=== PATIENT | female | born 1990 | race Caucasian/White ===

== ENCOUNTER 2017-04-12 12:00 | Emergency (ER) | payer OTHER ==
[~2017-04-12] VITALS: Ht 167.6 cm; Wt 87.5 kg
[2017-04-12 13:02] LABS: HEMATOCRIT 41.6 % (36.0-46.0); MCH 31.3 PG (29.0-34.0); MCHC 34.4 G/DL (30.0-36.0); MEAN PLAT.VOLUME 10.4 uM^3 (9.5-12.4); PLATELET COUNT 219 K/uL (156-360); RBC DIS.WIDTH-CV 13.1 % (11.8-14.6); RED BLOOD COUNT 4.57 M/uL (3.80-5.20); WHITE BLOOD COUNT 8.3 K/uL (4.1-10.2)
[2017-04-12 13:14] LABS: CHLORIDE 113 mEq/L (99-109); POTASSIUM 3.4 mEq/L (3.7-5.4); SODIUM 143 mEq/L (136-147)
[2017-04-12 13:15] LABS: GLUCOSE 92 mg/dL (70-99)
[2017-04-12 13:17] LABS: ANION GAP 7 MEQ/L (2-14)
[2017-04-12 13:20] LABS: UREA NITROGEN (BUN) 12 mg/dL (9-23)
[2017-04-12 13:23] LABS: TROP-I INTERPRETATION NEGATIVE; TROPONIN-I < 0.01 ng/mL (0.0-0.30)
[2017-04-12 13:25] LABS: GFR ESTIMATE (CALCULATED) > 59 mL/min/
[2017-04-12] MEDS ORDERED: ZITHROMAX Z-PA250 MG PO (14:31)
[2017-04-12] MEDS ORDERED: TESSALON PERLE100 MG PO (14:31)
[2017-04-12 15:00] VITALS: BP 115/78
== END 2017-04-12 15:05 | disposition home or self-care (01) ==
LOC: EME 12:00
DX: J40 Bronchitis, not specified as acute or chronic (principal); F17.200 Nicotine dependence, unspecified, uncomplicated
CPT/HCPCS: 71020; 80048; 84484; 85027; 93005; 99281; 99284

== ENCOUNTER 2017-08-20 14:59 | Emergency (ER) | payer OTHER ==
[~2017-08-20] VITALS: Ht 167.6 cm; Wt 95.2 kg
[~2017-08-20 14:59] MED LIST: TESSALON PERLE100 MG PO; ZITHROMAX Z-PA250 MG PO
[2017-08-20 15:51] LABS: HEMATOCRIT 41.2 % (36.0-46.0); HEMOGLOBIN 14.5 G/DL (11.9-15.5); MCH 32.4 PG (29.0-34.0); MCHC 35.2 G/DL (30.0-36.0); MCV 92.2 FL (83-99); PLATELET COUNT 261 K/uL (156-360); RBC DIS.WIDTH-CV 12.3 % (11.8-14.6); RBC DIS.WIDTH-SD 41.5 % (39-53); RED BLOOD COUNT 4.47 M/uL (3.80-5.20); WHITE BLOOD COUNT 9.1 K/uL (4.1-10.2)
[2017-08-20 16:01] LABS: CHLORIDE 106 mEq/L (99-109); POTASSIUM 4.5 mEq/L (3.7-5.4); SODIUM 140 mEq/L (136-147)
[2017-08-20 16:03] LABS: GLUCOSE 96 mg/dL (70-99)
[2017-08-20 16:07] LABS: CREATININE 0.8 mg/dL (0.6-1.3); GFR ESTIMATE (CALCULATED) > 59 mL/min/
[2017-08-20 16:08] LABS: UREA NITROGEN (BUN) 26 mg/dL (9-23)
[2017-08-20 16:12] LABS: TROP-I INTERPRETATION NEGATIVE; TROPONIN-I < 0.01 ng/mL (0.0-0.30)
[2017-08-20 16:15] LABS: QUANTITATIVE HCG < 4.0 MIU/ML
[2017-08-20 17:12] LABS: ALBUMIN 4.4 g/dL (3.2-4.8)
[2017-08-20 17:13] LABS: AMYLASE 65 IU/L (1-118)
[2017-08-20 17:15] LABS: TOTAL PROTEIN 7.6 g/dL (6.4-8.3)
[2017-08-20 17:17] LABS: TOTAL BILIRUBIN 0.4 mg/dL (0.0-1.0)
[2017-08-20 17:18] LABS: ALKALINE PHOSPHATASE 73 IU/L (3-129)
[2017-08-20 17:20] LABS: AST (GOT) 19 IU/L (2-34); DIRECT BILIRUBIN 0.1 mg/dL (0.0-0.3)
[2017-08-20 17:21] LABS: ALT (GPT) 17 IU/L (3-49)
[2017-08-20 17:22] LABS: LIPASE 41 U/L (1.0-51.0)
[2017-08-20] MEDS ORDERED: NORCO 5/3251 TABLET PO (19:49)
[2017-08-20] MEDS ORDERED: ZOFRAN4 MG PO (19:49)
[2017-08-20 19:56] VITALS: BP 122/67
[2017-08-20] MEDS ORDERED: AUGMENTIN875 MG PO (19:56)
== END 2017-08-20 19:56 | disposition home or self-care (01) ==
LOC: EME 14:59
DX: K81.0 Acute cholecystitis (principal); K21.9 Gastro-esophageal reflux disease without esophagitis; F17.200 Nicotine dependence, unspecified, uncomplicated
CPT/HCPCS: 71046; 76705; 80048; 80076; 82150; 83690; 84484; 84702; 85027; 93005; 99281; 99284; J1885

== ENCOUNTER 2017-09-01 13:13 | Day surgery (SDC) | payer OTHER ==
[~2017-09-01] VITALS: Ht 168.9 cm; Wt 95.3 kg
[~2017-09-01 13:13] MED LIST changes: +AMOXICILLIN250 MG PO; +AUGMENTIN875 MG PO; +LORCET 5-325 M1 EACH PO; +NORCO 5/3251 TABLET PO; +ZOFRAN4 MG PO
[2017-09-01 13:38] VITALS: BP 128/82
[2017-09-01] MEDS ORDERED: NORCO 5/3251 TABLET PO (19:03)
[2017-09-01 21:17] VITALS: BP 123/80
[2017-09-02 00:53] VITALS: BP 124/83
[2017-09-02 04:39] VITALS: BP 120/78
[2017-09-02 06:25] LABS: HEMATOCRIT 34.7 % (36.0-46.0); MCH 31.9 PG (29.0-34.0); MCHC 34.6 G/DL (30.0-36.0); MCV 92.3 FL (83-99); PLATELET COUNT 203 K/uL (156-360); RBC DIS.WIDTH-SD 40.3 % (39-53); RED BLOOD COUNT 3.76 M/uL (3.80-5.20); WHITE BLOOD COUNT 10.9 K/uL (4.1-10.2)
[2017-09-02 06:39] LABS: ALBUMIN 3.5 G/DL (3.2-4.8); ALKALINE PHOSPHATASE 54 IU/L (3-129); ALT (GPT) 29 IU/L (3-49); AST (GOT) 40 IU/L (2-34); CHLORIDE 103 MEQ/L (99-109); CREATININE 0.7 MG/DL (0.6-1.3); GFR ESTIMATE (CALCULATED) > 59 mL/min/; GLUCOSE 87 mg/dL (70-99); POTASSIUM 3.9 MEQ/L (3.7-5.4); SODIUM 136 MEQ/L (136-147); TOTAL BILIRUBIN 0.5 MG/DL (0.0-1.0); TOTAL PROTEIN 5.9 G/DL (6.4-8.3); UREA NITROGEN (BUN) 13 mg/dL (9-23)
[2017-09-02 07:51] VITALS: BP 124/67
[2017-09-02 12:06] VITALS: BP 93/55
== END 2017-09-02 15:00 | disposition home or self-care (01) ==
LOC: SDC 13:13 → 2SOUTH 18:15 → 2EASTP 18:15 → 2SOUTH 18:15 → ENRESERV 19:03 → 2EASTP 20:54
PROVIDERS: Surgery
DX: K80.12 Calculus of gallbladder with acute and chronic cholecystitis without obstruction (principal); F41.8 Other specified anxiety disorders; I49.9 Cardiac arrhythmia, unspecified; E66.9 Obesity, unspecified; Z68.33 Body mass index [BMI] 33.0-33.9, adult; F17.210 Nicotine dependence, cigarettes, uncomplicated; F12.10 Cannabis abuse, uncomplicated
CPT/HCPCS: 74300; 80053; 85027; 88304; 93005; C1769; G0378; J0131; J1170; J1885; J2250; J2405; J3010; J7120; Q0175; S0020; S0074